=== PATIENT | female | born 1995 | race Caucasian/White ===

== ENCOUNTER 2020-05-12 10:01 | Inpatient (IN) | payer BC ==
[2020-05-12] MEDS ORDERED: NALOXONE 0.4 MG/ML 1 ML VIAL IVP STA (10:21)
[2020-05-12] MEDS ORDERED: LORazepam 2 MG/ML INJ IV STA (10:21)
--- NOTE | 2020-05-12 10:33 | ED ---
General Adult HPI - General Chief complaint: Recheck/Abnormal Lab/Rx Stated complaint: altered mental status Source: patient, EMS Mode of arrival: EMS Limitations: altered mental status - History of Present Illness Initial comments: Dictation was produced using Lens[employer] dictation software. please excuse any grammatical, word or spelling errors. This patient was cared for during a federal and state declared state of emergency secondary to Covid 19 Chief Complaint: 25-year-old female presents with multiple episodes of syncope History of Present Illness: 25-year-old female she has past medical history of thyroid disease. She had radiation to the thyroid several years ago as a now on thyroid supplementation. Approximately 10 days ago patient had robotic e xpiratory laparoscopy for concerns of possible endometriosis. Patient reports that there was no significant findings that were seen on the laparoscopy. No other medical history. Today she has been feeling unwell. While en route to the emergency department patient was having frequent and multiple episodes of unresponsiveness. It was described that her eyes would become cross eyed and should be unresponsive to any audio or tactile stimuli for several seconds. Patient states she's been having palpitations. The ROS documented in this emergency department record has been reviewed and confirmed by me. Those systems with pertinent positive or negative responses have been documented in the HPI. All other systems are other negative and/or noncontributory. PHYSICAL EXAM: General Impression: Alert and oriented x3, tremulous, cool extremities, prolonged capillary refill, weak and thready pulses HEENT: Normocephalic atraumatic, extra-ocular movements intact, pupils equal and reactive to light bilaterally, dry mucous membranes Cardiovascular: Tachycardic Chest: Able to complete full sentences, no retractions, no tachypnea Abdomen: abdomen soft, non-tender, non-distended, no organomegaly Musculoskeletal: Weak Pulses but present present and equal in all extremities, no peripheral edema Motor: no focal deficits noted Neurological: CN II-XII grossly intact, no focal motor or sensory deficits noted Skin: Pale ED course: 25-year-old female with past medical history of hypothyroidism presents to the emergency Department with generalized malaise, feeling unwell and episodes of syncope. Vital signs upon arrival shows heart rate of 124, rest of vital signs within acceptable limits. While at the bedside being evaluated and obtaining history of present illness she would have multiple episodes where she would become unresponsive. She does have some shaking episodes. At this p oint the differential is wide. She was placed on personnel monitor during one of these syncopal episodes. There is no observance of any ventricular tachycardia or ventricular fibrillation or other dysrhythmia that would suggest cardiogenic syncope. She is however tachycardic. EKG shows sinus tachycardia. Patient was given Narcan sugar is prescribed tramadol recently. Given the history of recent surgery there is concern of pulmonary embolism. Although, she is not hypoxic or complaining of any lower extremity symptoms. During these episodes of syncope she does not have any post ictal state however she was given 2 mg of Ativan to see if there was any sort of improvement. [id number] blood glucose was normal. Patient takes oral contraceptives, thyroid medications and analgesics from the recent surgery. ED skin abrasions no acute processes. CT of the chest shows multiple small wolf ling defects consistent with pulmonary emboli. There is no evidence of large central component. There is air within the upper abdomen consistent with recent surgery. EKG interpretation: Ventricular rate 114, sinus tachycardia, IN interval 140, QRS 80, QTC 465. No IN prolongation, no QTC prolongation Repeat EKG was performed at 11:38 AM. Ventricular rate 91, normal sinus rhythm,. Interval 140, QRS 80, QTc 455 Patient reevaluated at bedside at approximately 11:50 AM. She is significantly improved after intravenous fluid administration. Patient is reevaluated at 12:30 PM. She even appears much more improved. Laboratory evaluation obtained CBC is unremarkable. Coag panel is negative. D-dimer 0.43. Venous blood gas shows bicarb of 23 but normal venous blood gas pH. Metabolic panel shows bicarb of 20 with a gap of 12. She does have a lactic acidosis 2.8. Magnesium 1.5. TSH of 0.058. Urinalysis shows 1+ ketones. Urine drug screen is negative. Patient be admitted for medical monitoring. She started heparin for PEs. She is much better however given that she had multiple episodes of syncope upon initial arrival she benefit from further monitoring and IV fluids. - Related Data Home Medications Medication Instructions Recorded Confirmed Docusate [Colace] 100 mg PO DAILY PRN 05/12/20 05/12/20 Ibuprofen [Motrin] 600 mg PO Q8HR PRN 05/12/20 05/12/20 Levothyroxine Sodium [Synthroid] 175 mcg PO DAILY 05/12/20 05/12/20 Norethindrone [Sugey] 0.35 mg PO HS 05/12/20 05/12/20 Allergies Allergy/AdvReac Type Severity Reaction Status Date / Time No Known Allergies Allergy Verified 05/12/20 11:06 Review of Systems ROS Statement: Those systems with pertinent positive or pertinent negative responses have been documented in the HPI. ROS Other: All systems not noted in ROS Statement are negative. Past Medical History Past Medical History: Thyroid Disorder History of Any Multi-Drug Resistant Organisms: None Reported Past Surgical History: No Surgical Hx Reported Past Psychological History: No Psychological Hx Reported Smoking Status: Never smoker Past Alcohol Use History: None Reported Past Drug Use History: None Reported General Exam Limitations: altered mental status Course Vital Signs 05/12/20 05/12/20 05/12/20 10:10 10:56 12:19 Temperature 98.9 F Pulse Rate 124 H 88 80 Respiratory 16 18 18 Rate Blood Pressure 128/82 120/83 114/87 O2 Sat by Pulse 100 100 98 Oximetry Medical Decision Making - Lab Data Result diagrams: 05/12/20 10:23 05/12/20 10:23 Lab Results 05/12/20 05/12/20 05/12/20 Range/Units 10:23 10:23 10:23 WBC 8.7 (3.8-10.6) k/uL RBC 4.32 (3.80-5.40) m/uL Hgb 13.0 (11.4-16.0) gm/dL Hct 37.0 (34.0-46.0) % MCV 85.7 (80.0-100.0) fL MCH 30.2 (25.0-35.0) pg MCHC 35.3 (31.0-37.0) g/dL RDW 11.7 (11.5-15.5) % Plt Count 196 (150-450) k/uL MPV 9.0 Neutrophils % 71 % Lymphocytes % 21 % Monocytes % 6 % Eosinophils % 1 % Basophils % 0 % Neutrophils # 6.2 (1.3-7.7) k/uL Lymphocytes # 1.9 (1.0-4.8) k/uL Monocytes # 0.5 (0-1.0) k/uL Eosinophils # 0.1 (0-0.7) k/uL Basophils # 0.0 (0-0.2) k/uL PT 10.9 (9.0-12.0) sec INR 1.0 (<1.2) APTT 23.4 (22.0-30.0) sec D-Dimer 0.43 (<0.60) mg/L FEU VBG pH (7.31-7.41) VBG pCO2 (37-51) mmHg VBG HCO3 (24-28) mmol/L Sodium 139 (137-145) mmol/L Potassium 4.1 (3.5-5.1) mmol/L Chloride 107 (98-107) mmol/L Carbon Dioxide 20 L (22-30) mmol/L Anion Gap 12 mmol/L BUN 10 (7-17) mg/dL Creatinine 0.71 (0.52-1.04) mg/dL Est GFR (CKD-EPI)AfAm >90 (>60 ml/min/1.73 sqM) Est GFR (CKD-EPI)NonAf >90 (>60 ml/min/1.73 sqM) Glucose 101 H (74-99) mg/dL POC Glucose (mg/dL) (75-99) mg/dL POC Glu Career Law Clerk ID Plasma Lactic Acid Braeden (0.7-2.0) mmol/L Calcium 9.6 (8.4-10.2) mg/dL Magnesium 1.5 L (1.6-2.3) mg/dL Total Bilirubin 0.6 (0.2-1.3) mg/dL AST 24 (14-36) U/L ALT 21 (4-34) U/L Alkaline Phosphatase 80 (38-126) U/L Creatine Kinase 55 (30-135) U/L Troponin I (0.000-0.034) ng/mL C-Reactive Protein 5.1 (<10.0) mg/L NT-Pro-B Natriuret Pep pg/mL Total Protein 7.5 (6.3-8.2) g/dL Albumin 4.6 (3.5-5.0) g/dL Lipase 110 (23-300) U/L TSH 0.058 L (0.465-4.680) mIU/L HCG, Quant <2.4 mIU/mL Urine Color Urine Appearance (Clear) Urine pH (5.0-8.0) Ur Specific [place] (1.001-1.035) Urine Protein (Negative) Urine Glucose (UA) (Negative) Urine Ketones (Negative) Urine Blood (Negative) Urine Nitrite (Negative) Urine Bilirubin (Negative) Urine Urobilinogen (<2.0) mg/dL Ur Leukocyte Esterase (Negative) Acetaminophen <10.0 ug/mL Serum Alcohol <10 mg/dL Blood Type Blood Type Recheck Bld Type Recheck Status Antibody Screen Spec Expiration Date 05/12/20 05/12/20 05/12/20 Range/Units 10:23 10:23 10:23 WBC (3.8-10.6) k/uL RBC (3.80-5.40) m/uL Hgb (11.4-16.0) gm/dL Hct (34.0-46.0) % MCV (80.0-100.0) fL MCH (25.0-35.0) pg MCHC (31.0-37.0) g/dL RDW (11.5-15.5) % Plt Count (150-450) k/uL MPV Neutrophils % % Lymphocytes % % Monocytes % % Eosinophils % % Basophils % % Neutrophils # (1.3-7.7) k/uL Lymphocytes # (1.0-4.8) k/uL Monocytes # (0-1.0) k/uL Eosinophils # (0-0.7) k/uL Basophils # (0-0.2) k/uL PT (9.0-12.0) sec INR (<1.2) APTT (22.0-30.0) sec D-Dimer (<0.60) mg/L FEU VBG pH (7.31-7.41) VBG pCO2 (37-51) mmHg VBG HCO3 (24-28) mmol/L Sodium (137-145) mmol/L Potassium (3.5-5.1) mmol/L Chloride (98-107) mmol/L Carbon Dioxide (22-30) mmol/L Anion Gap mmol/L BUN (7-17) mg/dL Creatinine (0.52-1.04) mg/dL Est GFR (CKD-EPI)AfAm (>60 ml/min/1.73 sqM) Est GFR (CKD-EPI)NonAf (>60 ml/min/1.73 sqM) Glucose (74-99) mg/dL POC Glucose (mg/dL) (75-99) mg/dL POC Glu Career Law Clerk ID Plasma Lactic Acid Braeden 2.8 H* (0.7-2.0) mmol/L Calcium (8.4-10.2) mg/dL Magnesium (1.6-2.3) mg/dL Total Bilirubin (0.2-1.3) mg/dL AST (14-36) U/L ALT (4-34) U/L Alkaline Phosphatase (38-126) U/L Creatine Kinase (30-135) U/L Troponin I <0.012 (0.000-0.034) ng/mL C-Reactive Protein (<10.0) mg/L NT-Pro-B Natriuret Pep 130 pg/mL Total Protein (6.3-8.2) g/dL Albumin (3.5-5.0) g/dL Lipase (23-300) U/L TSH (0.465-4.680) mIU/L HCG, Quant mIU/mL Urine Color Urine Appearance (Clear) Urine pH (5.0-8.0) Ur Specific [place] (1.001-1.035) Urine Protein (Negative) Urine Glucose (UA) (Negative) Urine Ketones (Negative) Urine Blood (Negative) Urine Nitrite (Negative) Urine Bilirubin (Negative) Urine Urobilinogen (<2.0) mg/dL Ur Leukocyte Esterase (Negative) Acetaminophen ug/mL Serum Alcohol mg/dL Blood Type Blood Type Recheck Bld Type Recheck Status Antibody Screen Spec Expiration Date 05/12/20 05/12/20 05/12/20 Range/Units 10:55 10:55 10:59 WBC (3.8-10.6) k/uL RBC (3.80-5.40) m/uL Hgb (11.4-16.0) gm/dL Hct (34.0-46.0) % MCV (80.0-100.0) fL MCH (25.0-35.0) pg MCHC (31.0-37.0) g/dL RDW (11.5-15.5) % Plt Count (150-450) k/uL MPV Neutrophils % % Lymphocytes % % Monocytes % % Eosinophils % % Basophils % % Neutrophils # (1.3-7.7) k/uL Lymphocytes # (1.0-4.8) k/uL Monocytes # (0-1.0) k/uL Eosinophils # (0-0.7) k/uL Basophils # (0-0.2) k/uL PT (9.0-12.0) sec INR (<1.2) APTT (22.0-30.0) sec D-Dimer (<0.60) mg/L FEU VBG pH 7.39 (7.31-7.41) VBG pCO2 38 (37-51) mmHg VBG HCO3 23 L (24-28) mmol/L Sodium (137-145) mmol/L Potassium (3.5-5.1) mmol/L Chloride (98-107) mmol/L Carbon Dioxide (22-30) mmol/L Anion Gap mmol/L BUN (7-17) mg/dL Creatinine (0.52-1.04) mg/dL Est GFR (CKD-EPI)AfAm (>60 ml/min/1.73 sqM) Est GFR (CKD-EPI)NonAf (>60 ml/min/1.73 sqM) Glucose (74-99) mg/dL POC Glucose (mg/dL) (75-99) mg/dL POC Glu Career Law Clerk ID Plasma Lactic Acid Braeden (0.7-2.0) mmol/L Calcium (8.4-10.2) mg/dL Magnesium (1.6-2.3) mg/dL Total Bilirubin (0.2-1.3) mg/dL AST (14-36) U/L ALT (4-34) U/L Alkaline Phosphatase (38-126) U/L Creatine Kinase (30-135) U/L Troponin I (0.000-0.034) ng/mL C-Reactive Protein (<10.0) mg/L NT-Pro-B Natriuret Pep pg/mL Total Protein (6.3-8.2) g/dL Albumin (3.5-5.0) g/dL Lipase (23-300) U/L TSH (0.465-4.680) mIU/L HCG, Quant mIU/mL Urine Color Colorless Urine Appearance Clear (Clear) Urine pH 7.5 (5.0-8.0) Ur Specific [place] 1.004 (1.001-1.035) Urine Protein Negative (Negative) Urine Glucose (UA) Negative (Negative) Urine Ketones 1+ H (Negative) Urine Blood Negative (Negative) Urine Nitrite Negative (Negative) Urine Bilirubin Negative (Negative) Urine Urobilinogen <2.0 (<2.0) mg/dL Ur Leukocyte Esterase Negative (Negative) Acetaminophen ug/mL Serum Alcohol mg/dL Blood Type A Positive Blood Type Recheck No Previous Record Bld Type Recheck Status CABO Indicated Antibody Screen NEGATIVE Spec Expiration Date 05/15/2020 - 235805/12/20 Range/Units 11:00 WBC (3.8-10.6) k/uL RBC (3.80-5.40) m/uL Hgb (11.4-16.0) gm/dL Hct (34.0-46.0) % MCV (80.0-100.0) fL MCH (25.0-35.0) pg MCHC (31.0-37.0) g/dL RDW (11.5-15.5) % Plt Count (150-450) k/uL MPV Neutrophils % % Lymphocytes % % Monocytes % % Eosinophils % % Basophils % % Neutrophils # (1.3-7.7) k/uL Lymphocytes # (1.0-4.8) k/uL Monocytes # (0-1.0) k/uL Eosinophils # (0-0.7) k/uL Basophils # (0-0.2) k/uL PT (9.0-12.0) sec INR (<1.2) APTT (22.0-30.0) sec D-Dimer (<0.60) mg/L FEU VBG pH (7.31-7.41) VBG pCO2 (37-51) mmHg VBG HCO3 (24-28) mmol/L Sodium (137-145) mmol/L Potassium (3.5-5.1) mmol/L Chloride (98-107) mmol/L Carbon Dioxide (22-30) mmol/L Anion Gap mmol/L BUN (7-17) mg/dL Creatinine (0.52-1.04) mg/dL Est GFR (CKD-EPI)AfAm (>60 ml/min/1.73 sqM) Est GFR (CKD-EPI)NonAf (>60 ml/min/1.73 sqM) Glucose (74-99) mg/dL POC Glucose (mg/dL) 91 (75-99) mg/dL POC Glu Career Law Clerk Kaitlin Aguiar Plasma Lactic Acid Braeden (0.7-2.0) mmol/L Calcium (8.4-10.2) mg/dL Magnesium (1.6-2.3) mg/dL Total Bilirubin (0.2-1.3) mg/dL AST (14-36) U/L ALT (4-34) U/L Alkaline Phosphatase (38-126) U/L Creatine Kinase (30-135) U/L Troponin I (0.000-0.034) ng/mL C-Reactive Protein (<10.0) mg/L NT-Pro-B Natriuret Pep pg/mL Total Protein (6.3-8.2) g/dL Albumin (3.5-5.0) g/dL Lipase (23-300) U/L TSH (0.465-4.680) mIU/L HCG, Quant mIU/mL Urine Color Urine Appearance (Clear) Urine pH (5.0-8.0) Ur Specific [place] (1.001-1.035) Urine Protein (Negative) Urine Glucose (UA) (Negative) Urine Ketones (Negative) Urine Blood (Negative) Urine Nitrite (Negative) Urine Bilirubin (Negative) Urine Urobilinogen (<2.0) mg/dL Ur Leukocyte Esterase (Negative) Acetaminophen ug/mL Serum Alcohol mg/dL Blood Type Blood Type Recheck Bld Type Recheck Status Antibody Screen Spec Expiration Date Disposition Clinical Impression: Syncope Disposition: ADMITTED IP TO THIS [facility] Condition: Fair Referrals: None,Stated [Primary Care Provider] - 1-2 days Decision Time: 12:39
--- NOTE | 2020-05-12 10:48 | CT ---
EXAMINATION TYPE: CT brain wo con DATE OF EXAM: 05/12/2020 COMPARISON: None HISTORY: seizure, syncope Unenhanced CT of the brain was performed. The ventricles, basal cisterns and sulci overlying the cerebral convexities demonstrate a normal appe arance. There is no evidence for intracranial hemorrhage or sulcal effacement. No mass effects are seen. Osseous calvarium is intact. If symptoms persist consider MRI as clinically warranted. IMPRESSION: 1. No acute intracranial process is seen at this time.
--- NOTE | 2020-05-12 11:01 | CT ---
EXAMINATION TYPE: CT angio chest DATE OF EXAM: 05/12/2020 COMPARISON: None HISTORY: Tachycardia, chest pain. Recent surgical intervention. CT DLP: 332.1 mGycm CONTRAST: CT chest with contrast and 3D reconstruction with MIP imaging is performed with IV Contrast, patient injected with 100 mL of Isovue 370. Contrast-enhanced CT of the chest was performed through the course of the pulmonary arteries with selma g and mediastinal window settings submitted. 3D reconstruction with MIP imaging was also performed. PULMONARY ARTERIES: There are a few small scattered filling defects suggested for example second orde r branch left lower lobe image 65 of 126 as well as a third order branch left lower lobe image 72 of 126. Pulmonary embolism is not excluded. There is no evidence for large saddle component. LUNGS: The lungs are clear and free of infiltrate. Mild dependent basilar atelectasis. No pulmonary n odule or mass is detected. No pleural effusion. MEDIASTINUM: Thoracic aorta is of normal caliber,however, evaluation is limited given timing of the contrast bolus. If there is concern for thoracic aortic pathology consider FERMIN. Correlate clinicall y . The heart is not enlarged. No evidence for mediastinal mass. No mediastinal lymph nodes greater than 1cm. HILAR STRUCTURES: No evidence for mass. No hilar lymph nodes greater than 1 cm. UPPER ABDOMEN: There is free air within the upper abdomen. Correlate with the recent surgical interve ntion. IMPRESSION: 1. There are a few tiny filling defects suggested and I cannot exclude underlying pulmonary embolism . As noted there is no evidence for a large central component or saddle embolus. 2. Free air within the upper abdomen. Correlate with the patient's surgical history.
[2020-05-12 11:02] LABS: Glucose,Whole Blood 91 mg/dL (75-99)
[2020-05-12] MEDS ORDERED: HEPARIN SODIUM 1,000 UN/ML (10ML VL) IV PRN (11:07)
[2020-05-12] MEDS ORDERED: HEPARIN SODIUM 1,000 UN/ML (10ML VL) IV ONE (11:07)
--- NOTE | 2020-05-12 11:11 | XR ---
EXAMINATION TYPE: XR chest 1V portable DATE OF EXAM: 05/12/2020 COMPARISON: NONE HISTORY: Chest pain TECHNIQUE: Single frontal view of the chest is obtained. FINDINGS: There is no focal air space opacity, pleural effusion, or pneumothorax seen. The cardiac silhouette size is within normal limits. The osseous structures are intact. There is free air presumably from the recent surgical intervention . Correlate clinically. IMPRESSION: 1. No acute process.
[2020-05-12 11:27] LABS: ALT 21 U/L (4-34); AST 24 U/L (14-36); Acetaminophen <10.0 ug/mL; African American GFR (CKD) >90 (>60 ml/min/1.73 sqM); Albumin 4.6 g/dL (3.5-5.0); Alcohol <10 mg/dL; Alkaline Phosphatase 80 U/L (38-126); Anion Gap 12 mmol/L; Blood Urea Nitrogen 10 mg/dL (7-17); C Reactive Protein 5.1 mg/L (<10.0); Calcium 9.6 mg/dL (8.4-10.2); Carbon Dioxide 20 mmol/L (22-30); Chloride 107 mmol/L (98-107); Creatine Kinase 55 U/L (30-135); Glucose 101 mg/dL (74-99); Lipase 110 U/L (23-300); Magnesium 1.5 mg/dL (1.6-2.3); Non-African American GFR(CKD) >90 (>60 ml/min/1.73 sqM); Potassium 4.1 mmol/L (3.5-5.1); Sodium 139 mmol/L (137-145); Total Bilirubin 0.6 mg/dL (0.2-1.3); Total Protein 7.5 g/dL (6.3-8.2)
[2020-05-12 11:28] LABS: VBG PH 7.39 (7.31-7.41)
[2020-05-12 11:30] LABS: D-Dimer 0.43 mg/L FEU (<0.60); Partial Thromboplastin Time 23.4 sec (22.0-30.0); Prothrombin Time 10.9 sec (9.0-12.0)
[2020-05-12 11:39] LABS: HCG,Quantitative Serum <2.4 mIU/mL
[2020-05-12 11:45] LABS: Basophils % (A) 0 %; Eosinophils # (A) 0.1 k/uL (0-0.7); Eosinophils % (A) 1 %; Lymphocytes # (A) 1.9 k/uL (1.0-4.8); Lymphocytes % (A) 21 %; MCH 30.2 pg (25.0-35.0); MCHC 35.3 g/dL (31.0-37.0); MCV 85.7 fL (80.0-100.0); Monocytes # (A) 0.5 k/uL (0-1.0); Monocytes % (A) 6 %; Neutrophils # (A) 6.2 k/uL (1.3-7.7); Neutrophils % (A) 71 %; Platelet Count 196 k/uL (150-450); RBC 4.32 m/uL (3.80-5.40); RDW 11.7 % (11.5-15.5); WBC 8.7 k/uL (3.8-10.6)
[2020-05-12 12:07] LABS: Appearance,Urine Clear (Clear); Bilirubin,Urine Negative (Negative); Blood,Urine Negative (Negative); Color,Urine Colorless; Glucose,Urine (UA) Negative (Negative); Ketones,Urine 1+ (Negative); Leukocyte Esterase,Urine Negative (Negative); Nitrite,Urine Negative (Negative); PH, Urine 7.5 (5.0-8.0); Protein,Urine Negative (Negative); Urobilinogen,Urine <2.0 mg/dL (<2.0)
[2020-05-12 12:16] LABS: Specific Gravity,Urine 1.004 (1.001-1.035)
[2020-05-12] MEDS ORDERED: NALOXONE 0.4 MG/ML 1 ML VIAL IV PRN (12:36)
[2020-05-12] MEDS ORDERED: ACETAMINOPHEN TAB 325 MG TAB PO PRN (12:36)
[2020-05-12] MEDS ORDERED: ONDANSETRON 4 MG/2 ML VIAL IVP PRN (12:36)
[2020-05-12] MEDS ORDERED: HYDROcodone/APAP 5-325MG 1 EACH TAB PO PRN (12:36)
[2020-05-12 12:40] LABS: Amphetamine Screen,Urine Not Detected (NotDetected); Barbiturate Screen,Urine Not Detected (NotDetected); Benzodiazepines Screen,Urine Not Detected (NotDetected); Cocaine Screen,Urine Not Detected (NotDetected); Methadone Screen, Urine Not Detected (NotDetected); Opiate Screen,Urine Not Detected (NotDetected); Oxycodone Screen, Urine Not Detected (NotDetected); Phencyclidine Screen,Urine Not Detected (NotDetected); Tricyclic Antidepressant,Urine Not Detected (NotDetected); Urn Cannabinoid Scrn Not Detected (NotDetected)
[2020-05-12] MEDS: MAGNESIUM SULFATE-D5W PMX 1 GM in DEXTROSE/WATER 1 100ML.BAG IVPB SCH ×2 (12:41→14:31)
[2020-05-12] MEDS: HEPARIN SOD,PORK IN 0.45% NACL 25,000 UNIT in 0.45% NACL 1 250ML.BAG IV SCH (12:48)
[2020-05-12] MEDS: SODIUM CHLORIDE 0.9% 1,000 ML IV SCH (12:50)
--- NOTE | 2020-05-12 14:30 | P.HPIM ---
History of Present Illness H&P Date: 05/12/20 Chief Complaint: syncope Patient is a 25-year-old female with a history of hyperthyroidism status post radioactive iodine therapy requiring thyroid replacement currently, serg stone who presented to the ER via EMS secondary to episodes of decreased responsiveness. In the ER she underwent an extensive evaluation. Vital signs on arrival demonstrated tachycardia with a heart rate of 124. Laboratory analysis showed a lactic acid of 2.8. CT of the chest showed probable left lobe pulmonary emboli without saddle PE. She was started on a heparin drip and arrangements were made for admission. Per EMS report on arrival patient was able to move the lower half her body that had feeling along with tremors. She went unresponsive lasting 30-45 seconds and then woke up and was alert and oriented. Patient seen and examined at bedside in the ER. She reports that approximately one week ago she underwent exploratory laparoscopy for possible endometriosis. She was having an unremarkable postoperative course until last evening. She began having some abdominal cramping and felt nauseated. Overnight she experienced some palpitations and difficulty catching her breath when laying flat. This morning she got up to go to work and felt dizzy and nauseated. She then started having left-sided chest pain without radiation. She then had an episode of decreased responsiveness. She reports that she had an episode where she could hear everything and see everything was unable to respond associated with some cramping and tingling in her right arm. She denies any loss of bowel or bladder. She denies any tongue biting. She reports some night sweats but no recent fever or chills. No coughing. She has no history of seizure disorder or heart problems. She has no personal or family history of blood clotting disorder. She is feeling better at this point in time. Hx of hyperthyroidism and was on cardiac medications for 6 months, then hyperthyroid meds, and finaly required radioactive iodine X 2 and not on thyroid replacement therapy. Pertinent positives and negatives as discussed in HPI, a complete review of systems was performed and all other systems are negative. General: non toxic, no distress, appears at stated age Derm: warm, dry Head: atraumatic, normocephalic, symmetric Eyes: EOMI, no lid lag, anicteric sclera, pupils equal round reactive to light ENT: Nose and ears atraumatic, no thrush, no pharyngeal erythema Neck: No thyromegaly, no cervical lymphadenopathy, trachea midline, supple Mouth: no lip lesion, mucus membranes moist Cardiovascular: S1S2 reg, no murmur, positive posterior tibial pulse bilateral, no edema, capillary refill less than 2 seconds Lungs: clear to ascultation bilateral, no ronchi, no rales, no wheeze, no accessory muscle use Abdominal: soft, nontender to palpation, no guarding, no appreciable organomegaly, normal bowel sounds Ext: no gross muscle atrophy, muscle strength muscle strength 5 out of 5 in all 4 extremities, no contractures Neuro: CN II-XI grossly intact, light touch intact all 4 extremities, finger to nose within normal limits, Psych: Alert, oriented, appropriate affect Probable small pulmonary embolism - heparin gtt transition to eliquis in AM - wean O2 as able Multiple episodes of decreased responsiveness - seizure vs syncope - echo - tele - orthostatic vital signs - consult cardio - consult neurology - seizure precautions - EEG Hypothyroidism with hx of hyperthyroidism - check TSH - levothyroxine The patient is admitted with an anticipated greater than 2 midnight stay for evaluation of syncope and pulmonary embolism. Surrogate decision-maker: DVT prophylaxis: heparin gtt for PE Discussed with: Patient, ed physician Anticipated discharge date: 1-[address]: home A total of 65 minutes was spent on the care of this complex patient more than 50% of the time was spent in counseling and care coordination. Past Medical History Past Medical History: Thyroid Disorder History of Any Multi-Drug Resistant Organisms: None Reported Additional Past Surgical History / Comment(s): Exploratory laparoscopy for endometriosis, radioactive iodine to thyroid 2 Past Psychological History: No Psychological Hx Reported Smoking Status: Never smoker Past Alcohol Use History: None Reported Past Drug Use History: None Reported - Past Family History Family history Additional Family Medical History / Comment(s): Denies family history of blood clots, coronary artery disease, valvular heart disease, stroke Medications and Allergies Home Medications Medication Instructions Recorded Confirmed Type Docusate [Colace] 100 mg PO DAILY PRN 05/12/20 05/12/20 History Ibuprofen [Motrin] 600 mg PO Q8HR PRN 05/12/20 05/12/20 History Levothyroxine Sodium [Synthroid] 175 mcg PO DAILY 05/12/20 05/12/20 History Norethindrone [Sugey] 0.35 mg PO HS 05/12/20 05/12/20 History Allergies Allergy/AdvReac Type Severity Reaction Status Date / Time No Known Allergies Allergy Verified 05/12/20 11:06 Physical Exam Osteopathic Statement: *. No significant issues noted on an osteopathic structural exam other than those noted in the History and Physical/Consult. Vitals: Vital Signs Temp Pulse Resp BP Pulse Ox 05/12/20 12:19 80 18 114/87 98 05/12/20 10:56 88 18 120/83 100 05/12/20 10:10 98.9 F 124 H 16 128/82 100 Intake and Output 05/11/20 05/12/20 05/12/20 22:59 06:59 14:59 Other: Weight 72.575 kg Results CBC & Chem 7: 05/12/20 10:23 05/12/20 10:23 Labs: Abnormal Lab Results - Last 24 Hours (Table) 05/12/20 05/12/20 05/12/20 Range/Units 10:23 10:23 10:55 VBG HCO3 (24-28) mmol/L Carbon Dioxide 20 L (22-30) mmol/L Glucose 101 H (74-99) mg/dL Plasma Lactic Acid Braeden 2.8 H* (0.7-2.0) mmol/L Magnesium 1.5 L (1.6-2.3) mg/dL TSH 0.058 L (0.465-4.680) mIU/L Urine Ketones 1+ H (Negative) 05/12/20 Range/Units 10:55 VBG HCO3 23 L (24-28) mmol/L Carbon Dioxide (22-30) mmol/L Glucose (74-99) mg/dL Plasma Lactic Acid Braeden (0.7-2.0) mmol/L Magnesium (1.6-2.3) mg/dL TSH (0.465-4.680) mIU/L Urine Ketones (Negative)
--- NOTE | 2020-05-12 18:57 | ECHOF ---
Referral Reason:syncope and pulmonary embolism MEASUREMENTS -------- HEIGHT: 177.8 cm WEIGHT: 72.6 kg BP: IVSd: 0.9 cm (0.6 - 1.1) LVIDd: 4.3 cm (3.9 - 5.3) LVPWd: 0.9 cm (0.6 - 1.1) EDV(Teich): 83 ml IVSs: 1.7 cm LVIDs: 2.8 cm LVPWs: 1.3 cm %IVS Thck: 95 % ESV(Teich): 29 ml EF(Teich): 65 % %FS: 35 % SV(Teich): 54 ml IVC: 16.19 mm LALs A4C: 4.1 cm LAAs A4C: 10.8 cm LAESV A-L A4C: 25 ml LAESV MOD A4C: 21 ml LALs A2C: 4.3 cm LAAs A2C: 9.0 cm LAESV A-L A2C: 16 ml LAESV MOD A2C: 14 ml LAESV(A-L): 20 ml LAESV Index (A-L): 10.70 ml/m Ao Diam: 3.2 cm (2.0 - 3.7) LA Diam: 1.9 cm (2.7 - 3.8) AV Cusp: 2.3 cm (1.5 - 2.6) EPSS: 1.3 cm MV E Anish: 0.97 m/s MV DecT: 125 ms MV Dec Windham: 7.7 m/s MV A Anish: 0.57 m/s MV E/A Ratio: 1.71 MV PHT: 36 ms MR Vmax: 1.08 m/s MR maxP.64 mmHg AV Vmax: 1.15 m/s AV maxP.33 mmHg TR Vmax: 1.72 m/s TR maxP.89 mmHg RAP: 5.00 mmHg RVSP: 16.89 mmHg MV EF SLOPE: 110.32 mm/s (70 - 150) MV EXCURSION: 21.43 mm (> 18.000) FINDINGS -------- This was a technically good study. The left ventricular size is normal. Left ventricular wall thickness is normal. Overall left vent ricular systolic function is normal with, an EF between 55 - 60 %. The diastolic filling pattern is normal for the age of the patient 9.69. The right ventricle is normal in size. The left atrial size is normal. Normal LA size by volume 22+/-6 ml/m2. The right atrial size is normal. The aortic valve is trileaflet and appears structurally normal. The mitral valve is normal. There is trace mitral regurgitation. The tricuspid valve appears structurally normal. Trace tricuspid regurgitation present. Right jimi tricular systolic pressure is normal at < 35 mmHg. There is no pulmonic regurgitation present. The aortic root size is normal. Normal inferior vena cava with normal inspiratory collapse consistent with estimated right atrial pre ssure of 5 mmHg. There is no pericardial effusion. CONCLUSIONS -------- 1. The left ventricular size is normal. 2. Left ventricular wall thickness is normal. 3. Overall left ventricular systolic function is normal with, an EF between 55 - 60 %. 4. The diastolic filling pattern is normal for the age of the patient 9.69 5. There is trace mitral regurgitation. 6. Trace tricuspid regurgitation present. 7. There is no pericardial effusion. MANAGER OF MANUFACTURING: Shanna Roper RDCS
[2020-05-12 23:06] VITALS: RESP 16
[2020-05-13] MEDS ORDERED: LEVOTHYROXINE 88 MCG TAB PO SCH (06:30)
[2020-05-13] MEDS: SODIUM CHLORIDE 0.9% 1,000 ML IV SCH (08:34)
[2020-05-13] MEDS ORDERED: PANTOPRAZOLE 40 MG/10 ML VIAL IV SCH (09:00)
[2020-05-13] MEDS: HEPARIN SOD,PORK IN 0.45% NACL 25,000 UNIT in 0.45% NACL 1 250ML.BAG IV SCH (12:12)
--- NOTE | 2020-05-13 12:33 | US ---
EXAMINATION TYPE: US venous doppler duplex LE BI DATE OF EXAM: 05/13/2020 12:03 PM COMPARISON: CT CLINICAL HISTORY: new PE . Patient stated had laparoscopy 2 weeks ago. SIDE PERFORMED: Bilateral TECHNIQUE: The lower extremity deep venous system is examined utilizing real time linear array sonog earl with graded compression, doppler sonography and color-flow sonography. VESSELS IMAGED: Common Femoral Vein Deep Femoral Vein Greater Saphenous Vein * Femoral Vein Popliteal Vein Small Saphenous Vein * Proximal Calf Veins (* superficial vessels) Right Leg: Negative for DVT Left Leg: Rouleaux Effect is noted with echoes in left Popliteal Vein, however, this vein is patent and compresses. Left leg is, otherwise, negative for DVT. IMPRESSION: No definite evidence of pulmonary embolism at this time.
[2020-05-13 12:39] VITALS: BP 112/66; PULSE 64; TEMP 96.2
--- NOTE | 2020-05-13 12:41 | P.CRDCN ---
History of Present Illness History of present illness: Patient is a 25-year-old female with a history of hyperthyroidism status post radioactive iodine therapy requiring thyroid replacement currently and endometriosis. 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 She presented to the ER via EMS secondary to episodes of decreased responsiveness. We have been consulted for syncope evaluation. EMS report on arrival patient states that patient was able move the lower half her body that had feeling along with tremors. She went unresponsive lasting 30-45 seconds and then woke up and was alert and oriented. Patient seen and examined at bedside. She reports that approximately week and a half ago she underwent exploratory laparoscopy for possible endometriosis. Tuesday night, she began having some abdominal cramping and felt nauseated. Overnight she experienced some palpitations felt as if her heart was slow down and shortness of breath, felt as if she couldnt take a deep breath. This morning she got up to go to work and felt dizzy, nauseated, and felt she might have diarrhea. She then started having left-sided chest pain without radiation. She then had an episode of decreased responsiveness. She reports that she had multiple episodes, about 10 per family, where she could hear everything and see everything was unable to respond associated with some cramping and tingling in her right arm. She states these episodes were brief. CT of the chest showed probable left lobe pulmonary emboli without saddle, she was started on a heparin drip. EKG reveals sinus tachycardia, no signficant ST-T wave abnormalities. Second EKG with sinus rhythm, no significant ST-T wave abnormalities. Telemetry tracings sinus mechanism HR 50s-70s. Echocardiogram EF 55-60%, trace MR, trace TR. Laboratory data reviewed D-dimer 0.43, CBC unremarkable, Lactic acid 2.8, Magnesium 1.5, Sodium 139, K 4.1, sCr 0.71, Troponin negative x 1, BNP 130, Urine tox negative, COVID-19 negative. She denies any loss of bowel or bladder. She denies any tongue biting. She reports some night sweats but no recent fever or chills. She denies alcohol or illicit drug use. She has no history of cardiac disease or hematologic disorders. She has no personal or family history of cardiac disease. REVIEW OF SYSTEMS At the time of my exam: CONSTITUTIONAL: Denies fever or chills. CARDIOVASCULAR: +shortness of breath +palpitations Denies chest pain, orthopnea, Denies PND RESPIRATORY: Denies cough. GASTROINTESTINAL:+diarrhea, +nausea Denies abdominal pain, Denies constipation or vomiting. MUSCULOSKELETAL: Denies myalgias. NEUROLOGIC: Denies numbness, tingling, headache or weakness. ENDOCRINE: Denies fatigue, Denies weight change, polydipsia or polyurina. GENITOURINARY: Denies burning, hematuria or urgency with micturation. HEMATOLOGIC: Denies history of anemia or bleeding. PHYSICAL EXAMINATION Vital Signs: BP 94/52 HR 72, afebrile, maintaining oxygen saturations on room air CONSTITUTIONAL: No apparent distress. HEENT: Head is normocephalic. Pupils are equal, round. Sclerae anicteric. Mucous membranes of the mouth are moist. No JVD. No carotid bruit. CHEST EXAMINATION: Lungs are clear to auscultation. No chest wall tenderness is noted on palpation or with deep breathing. HEART EXAMINATION: Regular rate and rhythm. S1, S2 heard. No murmurs, gallops or rub. ABDOMEN: Soft, nontender. Positive bowel sounds. EXTREMITIES: 2+ peripheral pulses, mild bilateral lower extremity edema and no calf tenderness. SKIN: intact NEUROLOGIC EXAMINATION: Patient is awake, alert and oriented x3. ASSESSMENT Syncope- unclear etiology Pulmonary Embolism - possibly provoked due to recent procedure Hyperthyroidism PLAN -Obtained bilateral LE Dopplers which were negative for a DVT -Patient is undergoing EEG today -From cardiology perspective, patient is stable, no arrhythmia noted on telemetry, echo with normal EF 55-60% -Patient can follow up with Dr. Blount in the outpatient office, and discuss further cardiac workup and possible holter monitor. Nurse Practitioner note has been reviewed, I agree with a documented findings and plan of care. Patient was seen and examined. Past Medical History Past Medical History: Thyroid Disorder History of Any Multi-Drug Resistant Organisms: None Reported Past Surgical History: No Surgical Hx Reported Additional Past Surgical History / Comment(s): Exploratory laparoscopy for endometriosis, radioactive iodine to thyroid 2 Past Psychological History: No Psychological Hx Reported Smoking Status: Never smoker Past Alcohol Use History: None Reported Past Drug Use History: None Reported - Past Family History Family history Additional Family Medical History / Comment(s): Denies family history of blood clots, coronary artery disease, valvular heart disease, stroke Medications and Allergies Home Medications Medication Instructions Recorded Confirmed Type Docusate [Colace] 100 mg PO DAILY PRN 05/12/20 05/12/20 History Ibuprofen [Motrin] 600 mg PO Q8HR PRN 05/12/20 05/12/20 History Levothyroxine Sodium [Synthroid] 175 mcg PO DAILY 05/12/20 05/12/20 History Norethindrone [Sugey] 0.35 mg PO HS 05/12/20 05/12/20 History Rivaroxaban [Xarelto Starter Pack] 0 mg PO DIRECTED 30 Days #1 pack 05/13/20 Rx Allergies Allergy/AdvReac Type Severity Reaction Status Date / Time No Known Allergies Allergy Verified 05/12/20 11:06 Physical Exam Vitals: Vital Signs Temp Pulse Pulse Resp BP BP Pulse Ox 05/13/20 03:30 97.8 F 74 16 99/62 96 05/13/20 02:12 16 05/13/20 01:40 98.0 F 64 16 122/67 97 05/12/20 20:00 58 L 16 101/66 96 05/12/20 14:00 60 16 104/74 96 05/12/20 12:19 80 18 114/87 98 05/12/20 10:56 88 18 120/83 100 05/12/20 10:10 98.9 F 124 H 16 128/82 100 Intake and Output 05/12/20 05/13/20 05/13/20 22:59 06:59 14:59 Intake Total 185.291 Balance 185.291 Intake: Intake, IV Titration 185.291 Amount Heparin Sod,Pork in 0.45% 185.291 NaCl 25,000 unit In 0.45 % NaCl 1 250ml.bag @ 18 UNITS/KG/HR 13.064 mls/hr IV .Q19H9M [facility] Rx#: [id number] Other: Voiding Method Toilet # Voids 2 Weight 71.7 kg Results 05/12/20 10:23 05/12/20 10:23 Cardiac Enzymes 05/12/20 05/12/20 Range/Units 10:23 10:23 AST 24 (14-36) U/L Troponin I <0.012 (0.000-0.034) ng/mL Coagulation 05/12/20 05/13/20 Range/Units 10:23 00:53 PT 10.9 (9.0-12.0) sec APTT 23.4 120.0 H* (22.0-30.0) sec CBC 05/12/20 Range/Units 10:23 WBC 8.7 (3.8-10.6) k/uL RBC 4.32 (3.80-5.40) m/uL Hgb 13.0 (11.4-16.0) gm/dL Hct 37.0 (34.0-46.0) % Plt Count 196 (150-450) k/uL Comprehensive Metabolic Panel 05/12/20 Range/Units 10:23 Sodium 139 (137-145) mmol/L Potassium 4.1 (3.5-5.1) mmol/L Chloride 107 (98-107) mmol/L Carbon Dioxide 20 L (22-30) mmol/L BUN 10 (7-17) mg/dL Creatinine 0.71 (0.52-1.04) mg/dL Glucose 101 H (74-99) mg/dL Calcium 9.6 (8.4-10.2) mg/dL AST 24 (14-36) U/L ALT 21 (4-34) U/L Alkaline Phosphatase 80 (38-126) U/L Total Protein 7.5 (6.3-8.2) g/dL Albumin 4.6 (3.5-5.0) g/dL Current Medications Generic Name Dose Route Start Last Admin Trade Name Freq PRN Reason Stop Dose Admin Acetaminophen 650 mg 05/12/20 12:36 Acetaminophen Tab 325 Mg Tab PO Q6HR PRN Mild Pain or Fever > 100.5 Hydrocodone Bitart/Acetaminophen 1 each 05/12/20 12:36 Hydrocodone/Apap 5-325mg 1 Each Tab PO Q4HR PRN Moderate Pain Heparin Sodium (Porcine) 0 unit 05/12/20 11:07 Heparin Sodium 1,000 Un/Ml (10ml Vl) IV PER PROTOCOL PRN Low PTT Protocol Heparin Sodium/Sodium Chloride 250 mls @ 13.064 mls/hr 05/12/20 11:15 05/13/20 04:30 25,000 unit/ Sodium Chloride IV 15 units/kg/hr .Q19H9M [facility] 10.886 mls/hr Titration Protocol 18 UNITS/KG/HR Sodium Chloride 1,000 mls @ 90 mls/hr 05/12/20 12:45 05/12/20 12:50 Saline 0.9% IV 90 mls/hr .Q11H7M [facility] Administration Levothyroxine Sodium 176 mcg 05/13/20 06:30 05/13/20 06:25 Levothyroxine 88 Mcg Tab PO 176 mcg DAILY@0630 D[facility]RIAN Administration Naloxone HCl 0.2 mg 05/12/20 12:36 Naloxone 0.4 Mg/Ml 1 Ml Vial IV Q2M PRN Opioid Reversal Ondansetron HCl 4 mg 05/12/20 12:36 Ondansetron 4 Mg/2 Ml Vial IVP Q8HR PRN Nausea And Vomiting Pantoprazole Sodium 40 mg 05/13/20 09:00 Pantoprazole 40 Mg/10 Ml Vial IV DAILY DARRIAN Intake and Output 05/12/20 05/13/20 05/13/20 22:59 06:59 14:59 Intake Total 185.291 Balance 185.291 Intake: Intake, IV Titration 185.291 Amount Heparin Sod,Pork in 0.45% 185.291 NaCl 25,000 unit In 0.45 % NaCl 1 250ml.bag @ 18 UNITS/KG/HR 13.064 mls/hr IV .Q19H9M [facility] Rx#: [id number] Other: Voiding Method Toilet # Voids 2 Weight 71.7 kg 05/12/20 10:23 05/12/20 10:23
[2020-05-13] MEDS ORDERED: RIVAROXABAN 15 MG TAB PO SCH (13:00)
[2020-05-13 13:19] LABS: HCT 38.5 % (34.0-46.0); HGB 13.7 gm/dL (11.4-16.0); MCH 31.2 pg (25.0-35.0); MCHC 35.6 g/dL (31.0-37.0); MCV 87.6 fL (80.0-100.0); Mean Platelet Volume 7.3; Platelet Count 226 k/uL (150-450); RDW 11.8 % (11.5-15.5); WBC 4.3 k/uL (3.8-10.6)
[2020-05-13 13:48] LABS: African American GFR (CKD) >90 (>60 ml/min/1.73 sqM); Anion Gap 10 mmol/L; Blood Urea Nitrogen 8 mg/dL (7-17); Calcium 9.4 mg/dL (8.4-10.2); Carbon Dioxide 21 mmol/L (22-30); Chloride 108 mmol/L (98-107); Glucose 89 mg/dL (74-99); Non-African American GFR(CKD) >90 (>60 ml/min/1.73 sqM); Phosphorus 3.4 mg/dL (2.5-4.5); Potassium 4.3 mmol/L (3.5-5.1); Sodium 139 mmol/L (137-145)
--- NOTE | 2020-05-13 14:04 | P.DS ---
Providers Date of admission: 05/12/20 12:36 Expected date of discharge: 05/13/20 Attending physician: Chloe Montoya DO Consults: 05/12/20 14:27 Consult Physician Routine Consulting Provider: Ariela Mclaughlin Consult Reason/Comments: syncope vs seizure with PE Do you want consulting provider notified?: Yes Consult Physician Routine Consulting Provider: Adeel Blount Consult Reason/Comments: syncope vs seizure with PE Do you want consulting provider notified?: Yes Primary care physician: Stated None Hospital Course: Discharge Diagnosis: Left lower lobe pulmonary embolism Syncope Recent laparoscopic surgery Hospital Course: Patient is a 25-year-old female with a history of hyperthyroidism status post radioactive iodine therapy requiring thyroid replacement currently, endometriosis who presented to the ER via EMS secondary to episodes of decreased responsiveness. In the ER she underwent an extensive evaluation. Vital signs on arrival demonstrated tachycardia with a heart rate of 124. Laboratory analysis showed a lactic acid of 2.8. CT of the chest showed probable left lobe pulmonary emboli without saddle PE. She was started on a heparin drip and arrangements were made for admission. She was seen by neurology and had a normal EEG. She was seen by cardiology and cleared for discharge. She will need to follow-up outpatient for possible tilt table testing versus continue Holter monitoring. She is aware that she will need to be on Eliquis for 6 months to one year. She has asked for outpatient referral and we will set her up with Jennifer Mejia nurse practitioner. Patient seen and examined at bedside. No chest pain, shortness of breath, nausea, or vomiting feeling much better and back to baseline. Vital signs reviewed and stable. General: non toxic, no distress, appears at stated age Derm: warm, dry Head: atraumatic, normocephalic, symmetric Eyes: EOMI, no lid lag, anicteric sclera Mouth: no lip lesion, mucus membranes moist Cardiovascular: S1S2 reg, no murmur, positive posterior tibial pulse bilateral, Lungs: CTA bilateral, no rhonchi, no rales , no accessory muscle use Abdominal: soft, nontender to palpation, no guarding, no appreciable organomegaly Ext: no gross muscle atrophy, no edema, no contractures Neuro: CN II-XI grossly intact, no focal neuro deficits Psych: Alert, oriented, appropriate affect A total of 25 minutes of time were spent preparing this complex discharge summary . Patient Condition at Discharge: Fair Plan - Discharge Summary New Discharge Prescriptions: New Rivaroxaban [Xarelto Starter Pack] 0 mg PO DIRECTED 30 Days #1 pack Continue Levothyroxine Sodium [Synthroid] 175 mcg PO DAILY Discontinued Docusate [Colace] 100 mg PO DAILY PRN PRN Reason: Constipation Norethindrone [Sugey] 0.35 mg PO HS Ibuprofen [Motrin] 600 mg PO Q8HR PRN PRN Reason: Pain Discharge Medication List Levothyroxine Sodium [Synthroid] 175 mcg PO DAILY 05/12/20 [History] Rivaroxaban [Xarelto Starter Pack] 0 mg PO DIRECTED 30 Days #1 pack 05/13/20 [Rx] Follow up Appointment(s)/Referral(s): Adeel Blount MD [STAFF PHYSICIAN] - 2 Weeks Jennifer Wayne NPC [REFERRING] - 1 Week None,Stated [Primary Care Provider] - 1-2 days Patient Instructions/Handouts: Pulmonary Embolism (DC) Activity/Diet/Wound Care/Special Instructions: Activity: as tolerated No contact sports, high risk activities, or horse back riding No Driving until cleared by cardiology (Dr. Blount) Diet: regular Special Instructions: Stay off all control/ hormone replacement therapy as it can increase the risk of blood clots. Discharge Disposition: HOME SELF-CARE
--- NOTE | 2020-05-13 14:09 | EEG ---
ELECTROENCEPHALOGRAM REPORT DATE OF SERVICE: 05/13/2020 PREAMBLE: This is a 25-year-old female with multiple syncopal spells. This study is performed to evaluate for any epileptiform activity. EEG FINDINGS: This is a 21 channel routine EEG recording in a patient utilizing 10/20 international system with referential and bipolar montages. Background consists of well developed, well regulated, moderate voltage activity in 9-10 hertz alpha. Background is posterior dominant and seems to be reactive to eye opening and closing. The patient was drowsy during most of the study with presence of some mixed alpha and theta activity. Bitemporal slowing was noted, probably related to drowsiness. Photic driving response was seen with most of the flash frequencies. Deeper stages of sleep were not seen. No focal or generalized epileptiform activity is seen. IMPRESSION: This is a normal EEG mostly during drowsiness. No epileptiform activity was seen. MMODL / IJN: [id number] /
--- NOTE | 2020-05-14 09:24 | P.CNNES ---
History of Present Illness Consult date: 05/13/20 Requesting physician: Chloe Montoya Reason for Consult: Syncope vs seizure with PE History of Present Illness: Patient is a 25-year-old female came to the hospital yesterday at 10:01 AM by ambulance for syncope versus seizure. Patient states that her symptoms started 2 days ago on Tuesday evening when she felt not well. She felt nausea with stomach bothering her. Next day on Tuesday, she woke up and had diarrhea, and felt will throw up. This feeling lasted for 1-1/2 hours. She went to her bed, felt her heart rate was dropping. Her mouth was dry, felt metallic taste. She called her [id number], and right after she passed out and was out for about 30 seconds. When she came to, she was fully alert and awake. Patient's [id number] called the ambulance and before the EMS arrived, she had another spell like this. Patient and her states that she had some more spells while she was in the ambulance and had about 12 such spells, in which she was in and out of consciousness. Each time she woke up was completely alert and oriented. No post ictal confusion. According to EMS flow sheet when they arrived patient was alert and oriented answering all questions appropriately. Patient has mentioned that she woke up dizzy and nauseated. He felt her heart was pausing. She blacked out. She was unable to move lower half of the body but head feeling. Patient has tremors. Patient was unresponsive again lasting approximately 30-45 seconds. Patient woke up was alert and oriented. Stroke scale was negative. Patient started complaining of crushing chest pain. No headache, neck pain and back pain, nausea or vomiting. Patient was tachypneic. Patient continued to have episodes of in and out of consciousness. Patient's vital signs at the scene was blood pressure 135/92, pulse rate 108, saturation 100% blood sugar 131 and temperature 97.8 Vital signs on arrival blood pressure 128/82, pulse rate 124, temperature 98.9. Most recent blood pressure is 94/52 with pulse of 72. Patient is afebrile. Blood pressure was normal CBC, PT/PTT, sodium 139 potassium 4.1, normal renal functions. Normal hepatic panel. TSH 0.058 which is slightly low, UA negative, urine drug screen negative. Blood alcohol level negative. Juarez virus PCR negative. CT head showed no acute intracranial process. CTA of the chest showed few tiny filling defects suggested, cannot exclude underlying pulmonary embolism. There is no evidence for a large central component or saddle embolus. Free air within the upper abdomen, correlate with the patient's surgical history. Chest x-ray showed no acute process. EKG with sinus tachycardia, ST and T-wave abnormality, consider lateral ischemia. 2-D echo showed normal left- ventricular size. Normal left-ventricular wall thickness. EF is 55-60%. Trace MR. Patient takes levothyroxine, norethindrone 0.35 mg at bedtime and ibuprofen. Patient had undergone laparoscopic procedure 2 weeks ago for endometriosis. Patient has been on control pills since age 16. She denies any tobacco, alcohol or drug use. No history of blood pressure diabetes. No history of seizures. Review of Systems at present patient denies any focal symptoms, denies any headache, numbness tingling focal weakness. Wants to go home. All review of systems unremarkable. Past Medical History Past Medical History: Thyroid Disorder History of Any Multi-Drug Resistant Organisms: None Reported Past Surgical History: No Surgical Hx Reported Additional Past Surgical History / Comment(s): Exploratory laparoscopy for endometriosis, radioactive iodine to thyroid 2 Past Psychological History: No Psychological Hx Reported Smoking Status: Never smoker Past Alcohol Use History: None Reported Past Drug Use History: None Reported - Past Family History Family history Additional Family Medical History / Comment(s): Denies family history of blood clots, coronary artery disease, valvular heart disease, stroke Medications and Allergies Home Medications Medication Instructions Recorded Confirmed Type Levothyroxine Sodium [Synthroid] 175 mcg PO DAILY 05/12/20 05/14/20 History Rivaroxaban [Xarelto Starter Pack] See Taper PO DIRECTED 05/14/20 05/14/20 History Allergies Allergy/AdvReac Type Severity Reaction Status Date / Time No Known Allergies Allergy Verified 05/14/20 06:25 Physical Examination - Vital Signs Vital Signs: Vital Signs Temp Pulse Pulse Resp BP BP Pulse Ox 05/13/20 07:41 98.1 F 72 16 94/52 100 05/13/20 03:30 97.8 F 74 16 99/62 96 05/13/20 02:12 16 05/13/20 01:40 98.0 F 64 16 122/67 97 05/12/20 20:00 58 L 16 101/66 96 05/12/20 14:00 60 16 104/74 96 05/12/20 12:19 80 18 114/87 98 05/12/20 10:56 88 18 120/83 100 05/12/20 10:10 98.9 F 124 H 16 128/82 100 Intake and Output 05/12/20 05/13/20 05/13/20 22:59 06:59 14:59 Intake Total 185.291 Balance 185.291 Intake: Intake, IV Titration 185.291 Amount Heparin Sod,Pork in 0.45% 185.291 NaCl 25,000 unit In 0.45 % NaCl 1 250ml.bag @ 18 UNITS/KG/HR 13.064 mls/hr IV .Q19H9M [facility] Rx#: [id number] Other: Voiding Method Toilet # Voids 2 Weight 71.7 kg on examination patient is a young female, in no acute distress. Tyler trevino is alert, awake, oriented to time place and person. Speech and language functions are normal. Attention, concentration, fund of knowledge is adequate. On general examination there is no carotid bruit or murmur. Abdomen is soft, nontender. Peripheral pulses present. On cranial examination pupils are round and reacting to light, visual ríos are full on confrontation, extraocular muscles are intact with no nystagmus. Face is symmetric, tongue protrudes to the midline. Palatal elevation and sensation normal, hearing and shoulder shrug normal, facial sensation is normal. On muscle strength testing there is no pronator drift and the strength is normal in arms and legs distally and proximally. Reflexes are 2+ and plantars downgoing. Sensory to touch is equal. No ataxia for [id number] testing, tone and bulk of muscles normal. Gait normal. Results - Laboratory Findings CBC and BMP: 05/13/20 12:50 05/13/20 12:50 Abnormal Lab Findings: Abnormal Labs 05/12/20 05/12/20 05/12/20 10:23 10:23 10:55 APTT VBG HCO3 Carbon Dioxide 20 L Glucose 101 H Plasma Lactic Acid Braeden 2.8 H* Magnesium 1.5 L TSH 0.058 L Urine Ketones 1+ H 05/12/20 05/12/20 05/13/20 10:55 14:06 00:53 APTT 120.0 H* VBG HCO3 23 L Carbon Dioxide Glucose Plasma Lactic Acid Braeden 0.6 L Magnesium TSH Urine Ketones Assessment and Plan Assessment: * Syncopal spells, likely due to acute pulmonary embolism. * Hypercoagulable state due to use of control pills. Recent laparoscopic procedure 2 weeks ago. Plan: * Patient had an EEG performed today. Patient was drowsy during most of the study. Some bitemporal slowing was seen, which could be related to drowsiness although underlying cortical neuronal dysfunction, or mild encephalopathy is a possibility. No epileptiform activity is seen. * Patient has been started on heparin for PE. Patient will be maintained on Xarelto. * Telemetry monitoring so far showing sinus rhythm. * Neurologically clear.
== END 2020-05-13 14:57 | disposition home or self-care (01) | DRG 176 ==
LOC: EC 10:01 → 3SCARD 12:36
PROVIDERS: ADMIT Internal Medicine; ATTEND Internal Medicine
DX: I26.99 Other pulmonary embolism without acute cor pulmonale (principal); E87.2 Acidosis; E03.9 Hypothyroidism, unspecified; Z20.822 Contact with and (suspected) exposure to COVID-19; Z98.890 Other specified postprocedural states; Z87.42 Personal history of other diseases of the female genital tract; Z79.890 Hormone replacement therapy
CPT/HCPCS: 36415; 70450; 71045; 71275; 80048; 80053; 80143; 80306; 80320; 81003; 82550; 82803; 83605; 83690; 83735; 83880; 84100; 84443; 84484; 84702; 85025; 85027; 85379; 85610; 85730; 86140; 86850; 86900; 86901; 87040; 87635; 93005; 93306; 93970; 95816; 96374; 99285

== ENCOUNTER 2021-01-16 14:05 | Observation (INO) | payer BC ==
[2021-01-16] MEDS ORDERED: LORazepam 2 MG/ML INJ IV STA ×2 (14:21→15:02)
[2021-01-16] MEDS ORDERED: SODIUM CHLORIDE 0.9% 1,000 ML IV STA (14:21)
--- NOTE | 2021-01-16 14:26 | ED ---
General Adult HPI - General Source: patient, family, EMS, old records reviewed Mode of arrival: EMS Limitations: no limitations <Jimmie Roldan - Last Filed: 01/16/21 15:02> <Dionisio Nicholson - Last Filed: 01/16/21 17:24> - General Chief complaint: Seizure Stated complaint: Seizure Time Seen by Provider: 01/16/21 14:09 - History of Present Illness Initial comments: Patient is a pleasant 25-year-old female presenting to the emergency Department with reported seizure. Seizures have been intermittent. Patient has had reported seizures over the past several months and has seen neurologists and has been diagnosed with non-epileptic seizures. Patient is awake and alert at this time however is having some mild shaking and not answering questions verbally at this time. Patient will shake her head yes and no. (Jimmie Roldan) - Related Data Home Medications Medication Instructions Recorded Confirmed Levothyroxine Sodium [Synthroid] 175 mcg PO DAILY 05/12/20 01/16/21 Escitalopram [Lexapro] 10 mg PO HS 01/16/21 01/16/21 Allergies Allergy/AdvReac Type Severity Reaction Status Date / Time No Known Allergies Allergy Verified 01/16/21 14:32 Review of Systems ROS Other: All systems not noted in ROS Statement are negative. Constitutional: Denies: fever Eyes: Denies: eye pain ENT: Denies: ear pain Respiratory: Denies: cough Cardiovascular: Denies: chest pain Endocrine: Denies: fatigue Gastrointestinal: Denies: vomiting Genitourinary: Denies: dysuria Musculoskeletal: Denies: back pain Skin: Denies: rash Neurological: Denies: weakness <Jimmie Roldan - Last Filed: 01/16/21 15:02> ROS Other: All systems not noted in ROS Statement are negative. <Dionisio Nicholson - Last Filed: 01/16/21 17:24> ROS Statement: Those systems with pertinent positive or pertinent negative responses have been documented in the HPI. Past Medical History Past Medical History: Pulmonary Embolus (PE), Thyroid Disorder Additional Past Medical History / Comment(s): endometriosis, nonepileptic siezure disorder History of Any Multi-Drug Resistant Organisms: None Reported Past Surgical History: No Surgical Hx Reported Additional Past Surgical History / Comment(s): Exploratory laparoscopy for endometriosis, radioactive iodine to thyroid 2 Past Psychological History: No Psychological Hx Reported Smoking Status: Never smoker Past Alcohol Use History: None Reported Past Drug Use History: None Reported - Past Family History Family history Additional Family Medical History / Comment(s): Denies family history of blood clots, coronary artery disease, valvular heart disease, stroke <Jimmie Roldan - Last Filed: 01/16/21 15:02> General Exam Limitations: no limitations General appearance: alert, other (Patient follows some commands and answers yes and no by shaking her head. Patient does follow with her eyes. Patient is having mild diffuse shaking.) Head exam: Present: atraumatic Eye exam: Present: normal appearance, PERRL Neck exam: Present: normal inspection. Absent: tenderness Respiratory exam: Present: normal lung sounds bilaterally Cardiovascular Exam: Present: regular rate, normal rhythm GI/Abdominal exam: Present: soft. Absent: tenderness Extremities exam: Present: normal inspection Neurological exam: Present: alert. Absent: motor sensory deficit Psychiatric exam: Present: other (Nonverbal at this time) Skin exam: Present: normal color <Jimmie Roldan - Last Filed: 01/16/21 15:02> Course <Jimmie Roldan - Last Filed: 01/16/21 15:02> Vital Signs 01/16/21 01/16/21 14:12 14:32 Temperature 98.3 F Pulse Rate 96 90 Respiratory 12 18 Rate Blood Pressure 143/82 130/81 O2 Sat by Pulse 97 100 Oximetry - Reevaluation(s) Reevaluation #1: 01/16/21 15:03 Patient reevaluated and unchanged. Family updated. He states symptoms have been intermittent over the past over hour now. Patient did have similar episode on Tuesday. Episode prior to that was a couple weeks earlier. Patient will be given further Ativan, case endorsed to Dr. Harding. Review of chart reveals patient has had previous admission with neurology evaluation and computed tomography scan. (Jimmie Roldan) Medical Decision Making - Lab Data Result diagrams: 01/16/21 14:26 01/16/21 14:26 <Jimmie Roldan - Last Filed: 01/16/21 15:02> - Lab Data Result diagrams: 01/16/21 14:26 01/16/21 14:26 <Dionisio Nicholson - Last Filed: 01/16/21 17:24> - Medical Decision Making Patient is signed out to me by previous shift physician, Dr. Roldan. Patient is a 25-year-old female presents today for involuntary tonic-clonic activity. She was evaluated in May for seizures patient a normal EEG and a normal MRI. She was discharged. Patient and family member at bedside reports that the were not provided with a referral. at the bedside reports that he spoke with colleagues and has an appointment with [facility] specialist in March. Having frequent episodes since May of this year. Began having increased frequency and intensity of these episodes again especially over the last couple weeks. Patient has normal labs. Patient evaluated the bedside still having these active symptoms. Case is discussed with our neurologist who is agreeable that it is reasonable for patient to be admitted to the hospital for neurology evaluation. Dr. Espino of neurology request the patient be loaded with Keppra. Patient be admitted to [facility]. (Dionisio Nicholson) - Lab Data Lab Results 01/16/21 01/16/21 01/16/21 Range/Units 14:26 14:26 14:26 WBC 6.3 (3.8-10.6) k/uL RBC 4.92 (3.80-5.40) m/uL Hgb 14.8 (11.4-16.0) gm/dL Hct 44.4 (34.0-46.0) % MCV 90.2 (80.0-100.0) fL MCH 30.0 (25.0-35.0) pg MCHC 33.3 (31.0-37.0) g/dL RDW 12.1 (11.5-15.5) % Plt Count 235 (150-450) k/uL MPV 8.3 Neutrophils % 53 % Lymphocytes % 37 % Monocytes % 6 % Eosinophils % 2 % Basophils % 0 % Neutrophils # 3.3 (1.3-7.7) k/uL Lymphocytes # 2.4 (1.0-4.8) k/uL Monocytes # 0.4 (0-1.0) k/uL Eosinophils # 0.1 (0-0.7) k/uL Basophils # 0.0 (0-0.2) k/uL Sodium 140 (137-145) mmol/L Potassium 4.4 (3.5-5.1) mmol/L Chloride 106 (98-107) mmol/L Carbon Dioxide 23 (22-30) mmol/L Anion Gap 11 mmol/L BUN 13 (7-17) mg/dL Creatinine 0.74 (0.52-1.04) mg/dL Est GFR (CKD-EPI)AfAm >90 (>60 ml/min/1.73 sqM) Est GFR (CKD-EPI)NonAf >90 (>60 ml/min/1.73 sqM) Glucose 88 (74-99) mg/dL Calcium 9.6 (8.4-10.2) mg/dL Magnesium (1.6-2.3) mg/dL Total Bilirubin 0.4 (0.2-1.3) mg/dL AST 29 (14-36) U/L ALT 27 (4-34) U/L Alkaline Phosphatase 101 (38-126) U/L Total Protein 8.3 H (6.3-8.2) g/dL Albumin 5.0 (3.5-5.0) g/dL TSH <0.015 L (0.465-4.680) mIU/L Free T4 2.31 H (0.78-2.19) ng/dL Free T3 pg/mL 4.3 (2.8-5.3) pg/ml Urine HCG, Qual (Not Detectd) Urine Opiates Screen Not Detected (NotDetected) Ur Oxycodone Screen Not Detected (NotDetected) Urine Methadone Screen Not Detected (NotDetected) Ur Propoxyphene Screen Not Detected (NotDetected) Ur Barbiturates Screen Not Detected (NotDetected) U Tricyclic Antidepress Not Detected (NotDetected) Ur Phencyclidine Scrn Not Detected (NotDetected) Ur Amphetamines Screen Not Detected (NotDetected) U Methamphetamines Scrn Not Detected (NotDetected) U Benzodiazepines Scrn Detected H (NotDetected) Urine Cocaine Screen Not Detected (NotDetected) U Marijuana (THC) Screen Not Detected (NotDetected) Serum Alcohol <10 mg/dL 01/16/21 01/16/21 Range/Units 14:26 16:06 WBC (3.8-10.6) k/uL RBC (3.80-5.40) m/uL Hgb (11.4-16.0) gm/dL Hct (34.0-46.0) % MCV (80.0-100.0) fL MCH (25.0-35.0) pg MCHC (31.0-37.0) g/dL RDW (11.5-15.5) % Plt Count (150-450) k/uL MPV Neutrophils % % Lymphocytes % % Monocytes % % Eosinophils % % Basophils % % Neutrophils # (1.3-7.7) k/uL Lymphocytes # (1.0-4.8) k/uL Monocytes # (0-1.0) k/uL Eosinophils # (0-0.7) k/uL Basophils # (0-0.2) k/uL Sodium (137-145) mmol/L Potassium (3.5-5.1) mmol/L Chloride (98-107) mmol/L Carbon Dioxide (22-30) mmol/L Anion Gap mmol/L BUN (7-17) mg/dL Creatinine (0.52-1.04) mg/dL Est GFR (CKD-EPI)AfAm (>60 ml/min/1.73 sqM) Est GFR (CKD-EPI)NonAf (>60 ml/min/1.73 sqM) Glucose (74-99) mg/dL Calcium (8.4-10.2) mg/dL Magnesium 2.0 (1.6-2.3) mg/dL Total Bilirubin (0.2-1.3) mg/dL AST (14-36) U/L ALT (4-34) U/L Alkaline Phosphatase (38-126) U/L Total Protein (6.3-8.2) g/dL Albumin (3.5-5.0) g/dL TSH (0.465-4.680) mIU/L Free T4 (0.78-2.19) ng/dL Free T3 pg/mL (2.8-5.3) pg/ml Urine HCG, Qual Not Detected (Not Detectd) Urine Opiates Screen (NotDetected) Ur Oxycodone Screen (NotDetected) Urine Methadone Screen (NotDetected) Ur Propoxyphene Screen (NotDetected) Ur Barbiturates Screen (NotDetected) U Tricyclic Antidepress (NotDetected) Ur Phencyclidine Scrn (NotDetected) Ur Amphetamines Screen (NotDetected) U Methamphetamines Scrn (NotDetected) U Benzodiazepines Scrn (NotDetected) Urine Cocaine Screen (NotDetected) U Marijuana (THC) Screen (NotDetected) Serum Alcohol mg/dL Disposition <Jimmie Roldan - Last Filed: 01/16/21 15:02> <Dionisio Nicholson - Last Filed: 01/16/21 17:24> Clinical Impression: Tonic clonic convulsion Disposition: ADMITTED IP TO THIS HOSP
[2021-01-16 14:41] LABS: Basophils % (A) 0 %; Eosinophils # (A) 0.1 k/uL (0-0.7); Eosinophils % (A) 2 %; HCT 44.4 % (34.0-46.0); HGB 14.8 gm/dL (11.4-16.0); Lymphocytes # (A) 2.4 k/uL (1.0-4.8); Lymphocytes % (A) 37 %; MCHC 33.3 g/dL (31.0-37.0); MCV 90.2 fL (80.0-100.0); Mean Platelet Volume 8.3; Monocytes # (A) 0.4 k/uL (0-1.0); Monocytes % (A) 6 %; Neutrophils # (A) 3.3 k/uL (1.3-7.7); Neutrophils % (A) 53 %; Platelet Count 235 k/uL (150-450); RBC 4.92 m/uL (3.80-5.40); RDW 12.1 % (11.5-15.5); WBC 6.3 k/uL (3.8-10.6)
[2021-01-16 14:48] LABS: ALT 27 U/L (4-34); AST 29 U/L (14-36); African American GFR (CKD) >90 (>60 ml/min/1.73 sqM); Alcohol <10 mg/dL; Alkaline Phosphatase 101 U/L (38-126); Anion Gap 11 mmol/L; Blood Urea Nitrogen 13 mg/dL (7-17); Calcium 9.6 mg/dL (8.4-10.2); Carbon Dioxide 23 mmol/L (22-30); Chloride 106 mmol/L (98-107); Glucose 88 mg/dL (74-99); Non-African American GFR(CKD) >90 (>60 ml/min/1.73 sqM); Potassium 4.4 mmol/L (3.5-5.1); Sodium 140 mmol/L (137-145); Total Bilirubin 0.4 mg/dL (0.2-1.3); Total Protein 8.3 g/dL (6.3-8.2)
[2021-01-16 15:05] LABS: T4, Free (Free Thyroxine) 2.31 ng/dL (0.78-2.19)
[2021-01-16] MEDS ORDERED: DIAZEPAM 5 MG/ML 2 ML INJ IVP STA (15:46)
[2021-01-16] MEDS ORDERED: levETIRAcetam IV 1,000 MG in SALINE 1 100ML.BAG IVPB STA (15:55)
[2021-01-16] MEDS ORDERED: NALOXONE 0.4 MG/ML 1 ML VIAL IV PRN (16:21)
[2021-01-16] MEDS ORDERED: SODIUM CHLORIDE 0.9% 1,000 ML IV SCH (16:30)
[2021-01-16 16:35] LABS: Amphetamine Screen,Urine Not Detected (NotDetected); Barbiturate Screen,Urine Not Detected (NotDetected); Benzodiazepines Screen,Urine Detected (NotDetected); Cocaine Screen,Urine Not Detected (NotDetected); Methadone Screen, Urine Not Detected (NotDetected); Opiate Screen,Urine Not Detected (NotDetected); Oxycodone Screen, Urine Not Detected (NotDetected); Phencyclidine Screen,Urine Not Detected (NotDetected); Tricyclic Antidepressant,Urine Not Detected (NotDetected); Urn Cannabinoid Scrn Not Detected (NotDetected)
--- NOTE | 2021-01-16 17:39 | P.HPIM ---
History of Present Illness Chief Complaint: Involuntary movements This is a very pleasant 25-year-old female no significant past medical history, and formulation of involuntary movements in her right wrist and left leg. This started a few days ago. No particular pattern to it. Tuesday she feels that her whole body is numb and she cannot move all but she is conscious. There is no loss of consciousness. There is no headache vision changes nausea vomiting focal deficits or numbness or back pain. Patient was evaluated for the similar situation 8 months ago. She states that after discharge from the hospital she was feeling much better did not have any of these movements and she attributed to distal distress. She did not have any follow-up after that. However this started again 2 days ago. Patient denies any recent stress. Denies any drinking medications or drug use. She is accompanied by her . Review of Systems All systems: negative Past Medical History Past Medical History: Pulmonary Embolus (PE), Thyroid Disorder Additional Past Medical History / Comment(s): endometriosis, nonepileptic siezure disorder History of Any Multi-Drug Resistant Organisms: None Reported Past Surgical History: No Surgical Hx Reported Additional Past Surgical History / Comment(s): Exploratory laparoscopy for endometriosis, radioactive iodine to thyroid 2 Past Psychological History: No Psychological Hx Reported Smoking Status: Never smoker Past Alcohol Use History: None Reported Past Drug Use History: None Reported - Past Family History Family history Additional Family Medical History / Comment(s): Denies family history of blood clots, coronary artery disease, valvular heart disease, stroke Medications and Allergies Home Medications Medication Instructions Recorded Confirmed Type Levothyroxine Sodium [Synthroid] 175 mcg PO DAILY 05/12/20 01/16/21 History Escitalopram [Lexapro] 10 mg PO HS 01/16/21 01/16/21 History Allergies Allergy/AdvReac Type Severity Reaction Status Date / Time No Known Allergies Allergy Verified 01/16/21 14:32 Physical Exam Vitals: Vital Signs Temp Pulse Resp BP Pulse Ox 01/16/21 14:32 90 18 130/81 100 01/16/21 14:12 98.3 F 96 12 143/82 97 Intake and Output 01/16/21 01/16/21 01/16/21 06:59 14:59 22:59 Other: Weight 58.967 kg - Constitutional General appearance: cooperative, no acute distress - EENT Eyes: EOMI, PERRLA, normal appearance ENT: normal oropharynx - Neck Neck: no lymphadenopathy, normal ROM, no rigidity, no thyromegaly - Respiratory Respiratory: bilateral: CTA, negative: rales, rhonchi, wheezing - Cardiovascular Rhythm: regular Heart sounds: normal: S1, S2 - Gastrointestinal General gastrointestinal: no hepatomegaly, normal bowel sounds, soft, no splenomegaly, no tenderness - Integumentary Integumentary: normal, normal turgor, no rash - Neurologic Neurologic: CNII-XII intact - Musculoskeletal Musculoskeletal: gait normal, no generalized weakness, strength equal bilaterally - Psychiatric Psychiatric: A&O x's 3, appropriate affect, intact judgment & insight Results CBC & Chem 7: 01/16/21 14:26 12 14:26 Labs: Abnormal Lab Results - Last 24 Hours (Table) 01/16/21 01/16/21 Range/Units 14:26 14:26 Total Protein 8.3 H (6.3-8.2) g/dL TSH <0.015 L (0.465-4.680) mIU/L Free T4 2.31 H (0.78-2.19) ng/dL U Benzodiazepines Scrn Detected H (NotDetected) Assessment and Plan Plan: #Involuntary movements Neurology consultation Neurology started Keppra Check CBC CMP, TSH #Hypothyroidism Patient's TSH is quite suppressed, possibility or overworked treatment with levothyroxine Questionably if some of this symptoms stemming from this Advised patient to decrease the dose of levothyroxine and recheck TSH in 4 weeks. Patient will be admitted under observation Full code is surrogate decision making
[2021-01-16] MEDS ORDERED: ESCITALOPRAM 10 MG TAB PO SCH (21:00)
[2021-01-17] MEDS ORDERED: LEVOTHYROXINE 75 MCG TAB PO SCH (06:30)
[2021-01-17] MEDS ORDERED: NON FORMULARY DRUG (Levothyroxine Sodium [Synthroid] 175 MCG Tablet) PO SCH (09:00)
--- NOTE | 2021-01-17 13:40 | P.PN ---
Subjective No new complaints. No involuntary movements or night feeling fine this morning. Objective - Vital Signs Vital signs: Vital Signs Temp 97.9 F 01/17/21 07:00 Pulse 109 H 01/17/21 07:00 Resp 18 01/17/21 07:00 BP 108/74 01/17/21 07:00 Pulse Ox 98 01/17/21 07:00 Intake & Output 01/16/21 01/17/21 01/17/21 18:59 06:59 18:59 Intake Total 100 180 Balance 100 180 Weight 58.967 kg Intake: Intake, IV Titration 100 Amount Sodium Chloride 0.9% 1, 100 000 ml @ 20 mls/hr IV . Q24H [facility] Rx#:[id number] Oral 180 Other: Voiding Method Toilet # Voids 1 2 - Exam Awake alert and oriented 3 Lungs with the patient isn't cardiovascular regular rhythm and rate Abdomen soft nontender Extremities no peripheral edema Neurological no focal deficits or involuntary movements or tremor or asterixis - Labs CBC & Chem 7: 01/16/21 14:26 01/16/21 14:26 Labs: Abnormal Lab Results - Last 24 Hours (Table) 01/16/21 01/16/21 Range/Units 14:26 14:26 Total Protein 8.3 H (6.3-8.2) g/dL TSH <0.015 L (0.465-4.680) mIU/L Free T4 2.31 H (0.78-2.19) ng/dL U Benzodiazepines Scrn Detected H (NotDetected) Assessment and Plan Plan: #Involuntary movements Neurology consultation Neurology started Keppra Check CBC CMP, TSH #Hypothyroidism Patient's TSH is quite suppressed, possibility or overworked treatment with levothyroxine Questionably if some of this symptoms stemming from this Advised patient to decrease the dose of levothyroxine and recheck TSH in 4 weeks. Patient will be admitted under observation Full code is surrogate decision making
[2021-01-17] MEDS ORDERED: ACETAMINOPHEN TAB 325 MG TAB PO PRN (15:10)
[2021-01-17] MEDS ORDERED: IBUPROFEN 400 MG TAB PO PRN (15:10)
[2021-01-17 15:46] VITALS: BP 102/67; PULSE 76; RESP 16; TEMP 98.2
--- NOTE | 2021-01-17 16:59 | P.CNNES ---
History of Present Illness Consult date: 01/17/21 Reason for Consult: tonic-clonic movements History of Present Illness: The patient is a 25-year-old female who [facility], via [facility]medicine. The patient reports that she has been having eye twitching and breath holding episodes. She states that her jaw locks. She notices twitching of her hands and arms. Sometimes she gets a warning sensation such as a "metal taste" in her mouth and clammy hands. Other times she does not get a warning sensation. Patient states that these symptoms began approximately 8 months ago after she underwent a procedure to check for endometriosis, which turned out to be negative. Patient apparently developed a PE, following this procedure. The patient reports that these episodes are not occurring daily. She does notice them to sometimes be associated with her migraine headaches which are severe, at times lasting more than 24 hours. She says that she is aware when she is having these episodes. She does sometimes feels that she will pass out. She denies tongue biting, loss of bowel or bladder control. She reports at times she is unable to speak during the episodes and feels as if she needs to go the bathroom, but is unable to tell someone. The patient reports that she must be very careful when she is walking. She says she often has to think about walking. The patient is working from home, most often. She says these episodes are interfering with her ability to do her work. The patient says she has had these episodes when she is out in public. She reports that she seldom goes out alone and seldom drives. The patient does report a history of neck pain. The patient reports being worked up on her previous hospital admission, with an EEG. It was reportedly negative for seizure activity. Lexapro was started at that time for concerns regarding anxiety. Past Medical History Past Medical History: Pulmonary Embolus (PE), Thyroid Disorder Additional Past Medical History / Comment(s): endometriosis, nonepileptic siezure disorder History of Any Multi-Drug Resistant Organisms: None Reported Past Surgical History: No Surgical Hx Reported Additional Past Surgical History / Comment(s): Exploratory laparoscopy for endometriosis, radioactive iodine to thyroid 2 Past Psychological History: No Psychological Hx Reported Smoking Status: Never smoker Past Alcohol Use History: None Reported Past Drug Use History: None Reported - Past Family History Family history Additional Family Medical History / Comment(s): Denies family history of blood clots, coronary artery disease, valvular heart disease, stroke Medications and Allergies Home Medications Medication Instructions Recorded Confirmed Type Levothyroxine Sodium [Synthroid] 175 mcg PO DAILY 05/12/20 01/16/21 History Escitalopram [Lexapro] 10 mg PO HS 01/16/21 01/16/21 History Allergies Allergy/AdvReac Type Severity Reaction Status Date / Time No Known Allergies Allergy Verified 01/16/21 14:32 Physical Examination - Vital Signs Vital Signs: Vital Signs Temp Pulse Pulse Resp BP BP Pulse Ox 01/17/21 07:00 97.9 F 109 H 18 108/74 98 01/17/21 02:00 20 01/17/21 01:10 98.5 F 74 14 101/66 98 01/16/21 20:00 20 01/16/21 19:08 98.1 F 85 16 101/67 96 01/16/21 18:17 98.4 F 90 18 108/72 98 Intake and Output 01/16/21 01/17/21 01/17/21 22:59 06:59 14:59 Intake Total 100 340 Balance 100 340 Intake: Intake, IV Titration 100 160 Amount Sodium Chloride 0.9% 1, 100 160 000 ml @ 20 mls/hr IV . Q24H [facility] Rx#:[id number] Oral 180 Other: Voiding Method Toilet Toilet # Voids 1 2 Weight 58.967 kg Gen.: The patient is reclining in the bed. She is well-nourished, well- developed and in no acute distress. The patient has a blanket on her bed, from home. HEENT: Head is atraumatic, normocephalic. Fundus not visualized. There is no scleral icterus. Mucous membranes are moist. Neck: Supple without carotid bruits Heart: Regular rate and rhythm Lungs: Clear to auscultation Extremities: Without edema Neurological examination Mental status: The patient is awake, alert and oriented 3. Her speech is clear. There is no dysarthria or aphasia. The patient very clearly and calmly answers questions and reports her symptoms. There are several episodes of eyelid fluttering, with eye closure and disruption of the task being performed. The patient does not verbalize that she is aware of these episodes, when they occur. Cranial nerves: Pupils are equal at 3 mm and reactive. Visual ríos are full to confrontation. Extraocular movements are intact. There is no nystagmus. Facial sensation is intact. There is no facial asymmetry. Hearing is grossly intact. Uvula and palate are midline. Shoulder shrug is symmetric. Tongue pro trudes midline. There is no evidence of tongue bite. Motor: Strength is 5/5 throughout. There are episodes of tremoring of the hands and the feet. Coordination: Finger to nose, rapid alternating movements and [id number] testing is intact. Sensation: Grossly intact to light touch throughout Deep tendon reflexes: 2+/4+ in the bilateral upper extremities. 3+/4+ at the knees. Plantar responses are flexor bilaterally. Gait: Not assessed Results - Laboratory Findings CBC and BMP: 01/16/21 14:26 01/16/21 14:26 Abnormal Lab Findings: Abnormal Labs 01/16/21 12 14:26 14:26 Total Protein 8.3 H TSH <0.015 L Free T4 2.31 H U Benzodiazepines Scrn Detected H Assessment and Plan Assessment: 1. Non-epileptiform movements, consisting of episodes of eye fluttering, with closing of the eyes, mouth and jaw movements, bilateral hand tremoring and bilateral foot tremoring These episodes are observed multiple times during the neurological examination. The patient suddenly begins fluttering her eyes and then closes them. She just as quickly opens them up again and continues to follow instructions or answer question that was asked. There is no postictal state. Each episode lasts for only a few seconds. Many of them are triggered by movements, such as checking strength or coordination. Plan: 1. I would recommend the patient be seen by an epileptologist or a movement disorder specialist for further evaluation. Would consider video monitored EEG 2. I advised the patient of these recommendations. 3. I advised against driving, swimming alone, climbing ladders, use of power tools, bathing while alone in the house and doing anything that may put her at risk of injury or if she is to have one of these episodes. Time with Patient: Greater than 30 (spent 45 minutes with patient via telemedicine.)
--- NOTE | 2021-01-17 17:10 | P.DS ---
Providers Date of admission: 01/16/21 16:22 Attending physician: Dallas Petty MD Consults: 01/16/21 16:00 Consult Physician Routine Consulting Provider: Raymond Espino Consult Reason/Comments: involuntary tonic clonic activities Do you want consulting provider notified?: Already Contacted Primary care physician: Stated None Hospital Course: Reason for admission Very pleasant 25-year-old female came to emergency department fibrillation of evaluated movements that involved her right arm and left leg. Sensation of all body numbness and inability to move. No loss of consciousness. No bladder or urine incontinence. Hospital course Patient was admitted and observed overnight. Patient did not have any further involuntary movements leg described on admission. Patient was evaluated by n eurology and they recommended for patient to follow up on outpatient basis with epileptologist or movement disorder specialist. No medications at this time. Patient was advised not to drive for 6 months, no swimming, no climbing ladders, no climbing leather or operating heavy machinery. Also patient's TSH was on the lower side than desired and I advised her to contact her primary care physician and discuss the dosing of her levothyroxine and certainly TSH checked in next 24 weeks. Lately she does not have any features of hyperthyroidism. Disposition: Home with family care. Follow-up with primary care physician for referrals as above. Plan - Discharge Summary Discharge Rx Participant: No New Discharge Prescriptions: Continue Levothyroxine Sodium [Synthroid] 175 mcg PO DAILY Escitalopram [Lexapro] 10 mg PO HS Discharge Medication List Levothyroxine Sodium [Synthroid] 175 mcg PO DAILY 05/12/20 [History] Escitalopram [Lexapro] 10 mg PO HS 01/16/21 [History] Follow up Appointment(s)/Referral(s): None,Stated [Primary Care Provider] - 1-2 days Activity/Diet/Wound Care/Special Instructions: Recheck your thyroid levels (TSH) in 24 weeks. primary care physician about levothyroxine dose. Recommended to see movement disorder specialist or epileptologist outpatient basis The recommendations from neurology, no driving for 6 months, no climbing ladders, no swimming, no bathing alone and no operating dangerous machinery Discharge Disposition: HOME SELF-CARE
[2021-01-18] MEDS ORDERED: LEVOTHYROXINE 75 MCG TAB PO SCH (06:30)
== END 2021-01-17 17:44 | disposition home or self-care (01) ==
LOC: EC 14:05 → 6NMEDSUR 16:22
PROVIDERS: ADMIT Hospitalist; ATTEND Hospitalist
DX: R56.9 Unspecified convulsions (principal); R25.3 Fasciculation; R25.8 Other abnormal involuntary movements; E03.9 Hypothyroidism, unspecified; G43.909 Migraine, unspecified, not intractable, without status migrainosus; M54.2 Cervicalgia; R20.0 Anesthesia of skin; N80.9 Endometriosis, unspecified; Z79.890 Hormone replacement therapy; Z79.899 Other long term (current) drug therapy; Z86.711 Personal history of pulmonary embolism
CPT/HCPCS: 96376; 96374; 96375; 99285; 36415; 93005; 84439; 84481; 80053; 83735; 84443; 85025; 81025; 80306; 80320; 87635; G0378 ×2; J2060; J3360; J1953

== ENCOUNTER → 2023-05-30 | Outpatient (CLI) | payer BC ==
[2023-05-31 03:52] LABS: T4, Free (Free Thyroxine) 1.09 ng/dL (0.80-1.80)
== END | disposition home or self-care (01) ==
LOC: LABWHC1 16:25
PROVIDERS: ATTEND Internal Medicine
DX: Z34.90 Encounter for supervision of normal pregnancy, unspecified, unspecified trimester (principal); Z3A.00 Weeks of gestation of pregnancy not specified
CPT/HCPCS: 36415; 84439; 84443

== ENCOUNTER 2023-09-03 23:20 | Outpatient (CLI) | payer BC ==
[2023-09-04 00:02] VITALS: BP 129/74; PULSE 83; RESP 16; TEMP 96.4
--- NOTE | 2023-11-24 10:37 | P.MSEPDOC ---
Presenting Problems - Arrival Data Date of Arrival on Unit: 09/03/23 Time of Arrival on Unit: 23:20 Mode of Transport: Ambulatory - Complaint OB-Reason for Admission/Chief Complaint: Decreased Movement Comment: pt. states she just had her 36 week check up yesturday everything was good then around 7:30am pt. states she wasnt feeling baby move- pt. then ate breakfest hoping that would help which it didnt, pt. layed on her side, ate, drank juice etc- despite all her attempts throughout they day she just felt flutter nothing like she is used to Medical History - Information : 1 Para: 0 Term: 0 : 0 Abortions: Spontaneous or Elective: 0 Number of Living Children: 0 - Gestational Age Gestational Age by RAQUEL (wks/days): 36 Weeks and 4 Days Review of Systems - Review of Systems Constitutional: No problems Breast: No problems ENT: No problems Cardiovascular: No problems Respiratory: No problems Gastrointestinal: No problems Genitourinary: No problems Musculoskeletal: No problems Neurological: No problems Skin: No problems Vital Signs - Temperature Temperature: 96.4 F Temperature Source: Temporal Artery Scan - Pulse Pulse Oximetery Pulse Rate: 83 Pulse Assessment Method: Automatic Cuff - Respirations Respiratory Rate: 16 Oxygen Delivery Method: Room Air O2 Sat by Pulse Oximetry: 97 - Blood Pressure Right Arm Blood Pressure: 129/74 Blood Pressure Mean: 92 Blood Pressure Source: Automatic Cuff Medical Screen Scoring - Assessment - Baby A Baseline FHR: 130 Heart Rate - NICHD Category: Category I (Normal) NST: Reactive Physician Notification - Physician Notified Physician Notified Date: 09/04/23 Physician Notified Time: 23:49 Physician: Jayshree Santiago New Order Received: No - Notification Comment Comment: reactive NST, cat1 FHTs, pt. hit button multiple times for baby movment, orders to discharge pt. home Maternal Triage Index - Maternal Triage Index Presenting for scheduled procedure w/no complaint: No - Stat/Priority 1 Stat Priority 1: No - Urgent/Priority 2 Urgent Priority 2: Yes Provider Notified: Jayshree Santiago Provider Notified Time: 23:49 Criteria Met for Priority 2: decrease movement at 36 weeks Disposition - Disposition OB Disposition: Discharge to home Discharge Date: 09/04/23 Discharge Time: 23:55 I agree with the RN Medical Screening Exam: Yes Case reviewed; plan agreed upon as documented in EMR&OBIX.: Yes Diagnosis: DECREASED MOVEMENTS, THIRD TRIMESTER, FETUS 1
== END 2023-09-03 23:55 | disposition home or self-care (01) ==
LOC: FBPOP 23:20
PROVIDERS: ATTEND Obstetrics & Gynecology Obstetrics
CPT/HCPCS: 59025; 99213